=== PATIENT | female | born 1995 | race Two or more races ===

== ENCOUNTER → 2020-06-21 07:58 | Outpatient (BNVA) | payer OTHER, SELFPAY | PROVIDERS: Visit Provider Physician Assistant | DX: Z76.89 Persons encountering health services in other specified circumstances (principal) ==

== ENCOUNTER → 2020-06-25 07:37 | Outpatient (BNVA) | payer MEDICAID, SELFPAY | PROVIDERS: Visit Provider Surgery | DX: Z76.89 Persons encountering health services in other specified circumstances (principal) ==

== ENCOUNTER → 2020-07-21 07:42 | Outpatient (BNVA) | payer MEDICAID, SELFPAY | PROVIDERS: PCP Internal Medicine; Visit Provider Surgery | DX: Z76.89 Persons encountering health services in other specified circumstances (principal) ==

== ENCOUNTER 2020-07-26 09:07 | Outpatient (REF) | payer MEDICAID, SELFPAY ==
--- NOTE | 2020-07-26 09:11 | US_ITS ---
EXAMINATION: US COMPLETE ABDOMEN WITH LIVER ELASTOGRAPHY CLINICAL INFORMATION: Bariatric service evaluation. E66.01 COMPARISON: None. TECHNIQUE: Real-time imaging of the abdominal viscera. Noninvasive ultrasound liver fibrosis assessment is performed using Shanda ElastPQ point quantification shear wave elastography (pSWE) with a 5 MHz transducer. Multiple elastography samples are obtained. FINDINGS: PANCREAS: The visualized pancreas is normal in size and echogenicity and contour. No pancreatic ductal distention. The distal body and tail are obscured by bowel gas. ABDOMINAL AORTA: The proximal, middle, and distal aortic segments are normal in caliber. INFERIOR VENA CAVA: Visualized portions are normal. LIVER: The liver is within limits of normal size and contour and homogeneous in echogenicity. There is mild increased hepatic parenchymal echogenicity consistent with mild hepatic steatosis. There is no focal hepatic parenchymal lesion or intrahepatic ductal dilatation. The right lobe measures 18.7 cm in length. The left lobe measures 12.1 cm in length. Color Doppler shows portal flow towards the liver. Shear wave elastography provides a median stiffness of 1.28 m/s (reference: normal median stiffness is 0.81 - 1.22 m/s). The IQR/median stiffness to assess sampling precision is 0.2 (reference: optimal IQR/median stiffness is under 0.3). GALLBLADDER: Normal. The gallbladder is physiologically distended without evidence of stones, sludge, polyps, wall thickening or pericholecystic fluid. COMMON BILE DUCT: Normal in caliber measuring 0.3 cm in diameter. RIGHT KIDNEY: Normal. No hydronephrosis. No renal calculi or focal parenchymal lesions. The kidney measures 11.6 cm in maximum dimension. LEFT KIDNEY: Normal. No hydronephrosis. No renal calculi or focal parenchymal lesions. The kidney measures 11.5 cm in maximum dimension. SPLEEN: Normal. The spleen measures 11.3 cm in maximum dimension. FREE FLUID: None. US/US abdomen comp w elastography IMPRESSION: 1. Liver within limits of normal size and smooth in contour. Mild hepatic steatosis. 2. Liver elastography measurements are consistent with a minimal risk for clinically significant liver fibrosis (METAVIR Stage F0-F1). 3. No cholelithiasis or ductal dilatation. 4. Bowel gas obscures distal body and tail pancreas.
--- NOTE | 2020-07-26 09:11 | FL_ITS ---
EXAMINATION: UPPER GI EXAM. CHEST. CLINICAL INFORMATION: Orbit obesity. Preop evaluation. COMPARISON: None TECHNIQUE: Chest 2 views. Routine upper GI air-contrast study was performed. FINDINGS: CHEST: The lungs are well-expanded and clear. Heart size and pulmonary vascularity is normal. No gross bony abnormality seen. UPPER GI BARIUM: Following oral administration of thick barium and effervescent granules there is normal propagation of bolus from the oral cavity through the pharynx, esophagus into stomach without any evidence of obstruction, narrowing or stricture. On placing patient supine the course, caliber and peristalsis of the stomach is normal. There is no gastroesophageal reflux or hiatal hernia. The mucosal pattern of esophagus, stomach and the duodenum is normal. FL/FL upper GI series IMPRESSION: Unremarkable chest exam. Unremarkable upper GI exam.
== END 2020-07-26 09:08 | disposition home or self-care (01) ==
LOC: HO.US 09:07
PROVIDERS: Visit Provider Surgery
DX: Z01.818 Encounter for other preprocedural examination (principal); E66.01 Morbid (severe) obesity due to excess calories; K76.0 Fatty (change of) liver, not elsewhere classified
CPT/HCPCS: 71046; 74240; 76705; 76981

== ENCOUNTER → 2020-08-02 08:49 | Outpatient (BNVA) | payer MEDICAID, SELFPAY | PROVIDERS: PCP Internal Medicine; Visit Provider Dietitian, Registered | DX: Z76.89 Persons encountering health services in other specified circumstances (principal) ==

== ENCOUNTER → 2020-08-30 09:05 | Outpatient (BNVA) | payer MEDICAID, SELFPAY | PROVIDERS: PCP Internal Medicine; Visit Provider Dietitian, Registered ==

== ENCOUNTER → 2020-09-01 08:27 | Outpatient (BNVA) | payer MEDICAID, SELFPAY | PROVIDERS: PCP Internal Medicine; Visit Provider Surgery ==

== ENCOUNTER → 2020-09-27 08:26 | Outpatient (BNVA) | payer MEDICAID, SELFPAY | PROVIDERS: PCP Internal Medicine; Visit Provider Surgery ==

== ENCOUNTER → 2020-10-11 08:47 | Outpatient (BNVA) | payer MEDICAID, SELFPAY | PROVIDERS: PCP Internal Medicine; Visit Provider Dietitian, Registered ==